=== PATIENT | female | born 1945 | race Caucasian/White ===

== ENCOUNTER 2024-09-26 08:49 | Day surgery (SDC) | payer MEDICARE ==
[2024-09-26] VITALS (19 sets, daily range): BP systolic 148–189; BP diastolic 55–102
[~2024-09-26] VITALS: Ht 154.9 cm; Wt 84.5 kg
[~2024-09-26 08:49] MED LIST: AMLO5 PO; ATORVASTATIN CA80 M1 PO; DULO30 PO; GABA300 PO; LEVSOD75 PO; LISI20 PO; OMEP20ER PO
[2024-09-26] MEDS ORDERED: CeFAZolin Sodium 2,000 MG in NS 100 ML IV SCH (11:05)
[2024-09-26] MEDS ORDERED: Lactated Ringer's 1,000 ML IV SCH ×2 (11:05→17:30)
--- NOTE | 2024-09-26 11:15 | NUR ---
Ambulatory in Day Surgery W/CANE ASSIST. Pre-Op teaching done. Pt verbalizes understanding. History, Chart, Medications and Allergies reviewed before start of procedure.Patient confirms NPO status and agrees with scheduled surgery. Patient States Post-Procedure ride home has been arranged. Patient reports completing Chlorhexadine shower X2 prior to admission to hospital.
[2024-09-26] MEDS ORDERED: propofoL 20 ML IV ONE (12:39)
[2024-09-26] MEDS ORDERED: Dexamethasone Sod Phos 10 MG/ML 1ML VIAL ONE (12:39)
[2024-09-26] MEDS ORDERED: Ondansetron HCl 2 MG / ML 2ML Vial ONE (12:39)
[2024-09-26] MEDS ORDERED: Rocuronium Bromide 10 MG/ML 5ML Injection IV ONE (12:39)
[2024-09-26] MEDS ORDERED: FentaNYL Citrate 50 MCG/ML 2 ML Injection ONE ×2 (12:41→14:21)
[2024-09-26] MEDS ORDERED: Bupivacaine 0.5% HCl 5 MG/ML 30MLVIAL ONE (12:59)
[2024-09-26] MEDS ORDERED: Esmolol HCL 10 MG/ML 10ML VIAL ONE (13:46)
[2024-09-26] MEDS ORDERED: ePHEDrine Sulfate 50 MG/ML 1ML Injection ONE (14:12)
--- NOTE | 2024-09-26 15:07 | NUR ---
09/26/24 KARLIE RICHARDSON SMALL SKIN TEAR NOTED NEAR [facility] AC PERIPHERAL IV SITE SECONDARY TO TAPE AND POSITIONING. BANDAGE APPLIED, SURGEON AND ANESTHESIA NOTIFIED
[2024-09-26] MEDS ORDERED: Sugammadex Sodium 200 MG/2ML SDV (100 MG/ML) ONE (16:02)
[2024-09-26] MEDS ORDERED: Labetalol HCL 5 MG/ML 4ML Injection (Single Dose) ONE (16:12)
[2024-09-26] MEDS ORDERED: HYDROmorphone HCl/Pf 1MG SYR ONE ×2 (16:22→16:51)
[2024-09-26] MEDS ORDERED: LORazepam 2 MG/ML 1ML Injection ONE (16:41)
[2024-09-26] MEDS ORDERED: Ondansetron HCl 2 MG / ML 2ML Vial IV PRN (17:30)
[2024-09-26] MEDS ORDERED: Diazepam 5 MG / ML 2ML SYR IV PRN (17:35)
[2024-09-26] MEDS ORDERED: Ketorolac Tromethamine 15mg Vial IV PRN (17:35)
[2024-09-26] MEDS ORDERED: HYDROmorphone HCl/Pf 1MG SYR IV PRN (17:35)
[2024-09-26] MEDS ORDERED: FLU VACC TS2024-25(6MOS UP)/PF 45 MCG/0.5 ML SYRINGE IM SCH (17:35)
[2024-09-26] MEDS ORDERED: Acetaminophen 500 MG Tab PO SCH (18:00)
--- NOTE | 2024-09-26 19:39 | NUR ---
SHIFT SUMMARY PT ARRIVED TO UNIT FROM PACU AT APPROX 1805 TODAY. A/OX4- DROWSY. DENIES PAIN. ABD INCISION X 5 GLUED, OPEN TO AIR WITH NO DRAINAGED NOTED. IV TO RIGHT ACL PATENT. ABLE TO WIGGLE TOES. DENIES N/T, CHEST PAIN, OR N/V. TOLERATING CL. REPORT GIVEN TO ONCOMING RN.
[2024-09-26] MEDS ORDERED: Docusate Sodium 100 MG Cap PO SCH (21:00)
[2024-09-27] VITALS (13 sets, daily range): BP systolic 165–209; BP diastolic 68–101
--- NOTE | 2024-09-27 05:28 | NUR ---
SHIFT SUMMARY- IVETTE HAD A GOOD NIGHT. SHE DOES EXPERIENCE URINARY URGENCY AT BASELINE SO SHE DID HAVE A COUPLE INCONTINENT EPISODES, BUT WAS ABLE TO WALK ALL THE WAY INTO THE BATHROOM USING HER CANE. SHE COMPLAINED OF PAIN TWICE DURING THE NIGHT, TORADOL GIVEN- WHICH PROVIDED HER WITH RELIEF. SCHEDULED TYLENOL GIVEN ORDERED, NO OTHER NEEDS NOTED THROUGHOUT THE NIGHT. IVETTE DID REQUEST TO WEAR HER BIPAP AT NIGHT- RT SET THIS UP FOR HER AND THERE HAS BEEN NO ISSUES. AM VITAL SIGNS ELEVATED, 180/83- PATIENT STATES SHE TYPICALLY HAS HIGH BLOOD PRESSURE AND TAKES A BP MEDICATION DAILY. PT RECEIVING LR AT 50ML/HR. NO OTHER NEEDS. WILL CONTINUE TO MONITOR.
--- NOTE | 2024-09-27 08:09 | NUR ---
NURSING SURG DAYSHIFT: Assumed care of pt at approx 0700. A/O, very pleasant, coopertive with care. Denies any pain/discomfort at rest. Skin pale/fragile w/no breakdown noted, abd lap sites x3, small amt of bruising noted around L abd lap site, no redness/swelling noted. Ambulates w/one staff assist using cane. No tele in place, HRR w/HR 80-90's, no c/o CP/pressure, no noted edema. L/S cta t/o, denies dyspnea, O2 sat mid 90's, RA while awake w/home bipap while asleep, occ dry/INSULATION INSTALLER in a.m. Abd soft, tender w/palp, BT hypoactive, voids clear/yellow urine. PIV x1, LR infusing at 50. No s/s of acute distress this a.m. Ambulated to restroom w/o difficulty. Currently sitting up in bed having breakfast. Awaiting rounding from surgeon to discuss plan of care. Pt denies any current needs, cont to monitor for changes.
[2024-09-27] MEDS ORDERED: Lisinopril 20 MG Tab PO SCH (12:00)
[2024-09-27] MEDS ORDERED: AmLODIPine Besylate 5 MG Tab PO SCH ×2 (12:00→16:00)
[2024-09-27] MEDS ORDERED: HydrALAZINE HCl 20 MG / ML 1ML Vial IV PRN ×2 (15:25→18:41)
--- NOTE | 2024-09-27 18:43 | NUR ---
NURSING SURG DAYSHIFT SUMMARY: Pt did well t/o the a.m. Though home cardiac meds resumed and IV vasotec administered, pt remained hypertensive w/SBP >200. Surgeon notified, new d/o received, hospitalist consult completed. Pt seen by hospitalist and new meds ordered. IV hydralazine administered (10mg x2), pt remained >200. Pain medications given, OT dose lisinopril administered, hydralazine ordered dose increased, SBP remains >200. Pt has started passing gas this afternoon which has increased discomfort, pt encoured to get OOB to chair for supper. Walked approx 100 ft after supper w/SBA using cane, tolerated well. Currently resting in bed, bedside shift report completed. No s/s of acute distress, call light remains in reach.
[2024-09-27] MEDS ORDERED: Lisinopril 10 MG Tab PO ONE (20:00)
[2024-09-27] MEDS ORDERED: Gabapentin 300 MG Cap PO SCH (21:00)
[2024-09-28 04:01] VITALS: BP 144/73
--- NOTE | 2024-09-28 04:54 | NUR ---
SHIFT SUMMARY POD 2 LAP HERNIA REPAIR PT RESTED T/O SHIFT. PAIN MANAGED PER EMAR. TOLERATING PO INTAKE. PT IS SBA TO THE BATHROOM WITH A CANE. PT'S BP HAS IMPROVED THROUGH THE NIGHT. SBP DOWN INTO THE 140'S THIS AM. VSS. NO OTHER CONCERNS AT THIS TIME, CALL LIGHT WITHIN REACH
[2024-09-28] MEDS ORDERED: Omeprazole 20 MG CapCR PO SCH (06:00)
[2024-09-28] MEDS ORDERED: Levothyroxine Sodium 0.075 MG Tab PO SCH (06:00)
[2024-09-28 07:02] VITALS: BP 142/67
--- NOTE | 2024-09-28 07:25 | NUR ---
AM ASSESSMENT: Pt resting in bed. x5 Abd Lap incisions with glue that are clean, dry and intact. Abd binder in place. No redness or oozing noted. BT positive, pt states that she is passing flatus. LS clear. HR reg. Pulses palp. Pt states that her pain in ryan abd in 12/08. VSS, BP improved with systolic in the 140's. Pt denies needs, anxious for discharge. Call light in reach. Will monitor.
[2024-09-28] MEDS ORDERED: Lisinopril 20 MG Tab PO SCH (09:00)
[2024-09-28] MEDS ORDERED: DULoxetine HCL 30 MG Cap DR PO SCH (09:00)
[2024-09-28] MEDS ORDERED: Atorvastatin 40 MG Tab PO SCH (09:00)
[2024-09-28 10:47] VITALS: BP 159/72
[2024-09-28] MEDS ORDERED: OXYC5 PO (11:17)
--- NOTE | 2024-09-28 11:30 | NUR ---
discharge: Pt was given verbal and written discharge orders. Denies questions. IV was removed by [facility]. Left via w/c with [facility] and family. Stable at time of discharge.
== END 2024-09-28 11:29 | disposition home or self-care (01) ==
LOC: ORSCMMR 08:49 → ORD 10:30 → ORSCMMR 10:30 → SURS 18:02 → ORSCMMR 09-28 11:29
PROVIDERS: Surgery
PROC: 8E0W4CZ Robotic Assisted Procedure of Trunk Region, Percutaneous Endoscopic Approach (ICD-10-PCS; principal; 2024-09-26 12:00)
PROC: 0WUF4JZ Supplement Abdominal Wall with Synthetic Substitute, Percutaneous Endoscopic Approach (ICD-10-PCS; principal; 2024-09-26 12:00)
PROC: 3E0T3BZ Introduction of Anesthetic Agent into Peripheral Nerves and Plexi, Percutaneous Approach (ICD-10-PCS; principal; 2024-09-26 12:00)
DX: K43.0 Incisional hernia with obstruction, without gangrene (principal); M62.08 Separation of muscle (nontraumatic), other site; K66.0 Peritoneal adhesions (postprocedural) (postinfection); Z85.038 Personal history of other malignant neoplasm of large intestine; Z90.49 Acquired absence of other specified parts of digestive tract; I12.9 Hypertensive chronic kidney disease with stage 1 through stage 4 chronic kidney disease, or unspecified chronic kidney disease; N18.9 Chronic kidney disease, unspecified; G47.33 Obstructive sleep apnea (adult) (pediatric); E78.5 Hyperlipidemia, unspecified; E66.9 Obesity, unspecified; Z68.35 Body mass index [BMI] 35.0-35.9, adult; Z79.899 Other long term (current) drug therapy
CPT/HCPCS: 94762; A9270; C1781; J0360; J0690; J1100; J1171; J1885; J2060; J2405; J2704; J3010; J7120

== ENCOUNTER 2025-01-10 16:41 | Emergency (ER) | payer MEDICARE ==
[~2025-01-10] VITALS: Ht 160 cm; Wt 83.5 kg
[~2025-01-10 16:41] MED LIST changes: +OXYC5 PO
[2025-01-10 17:43] LABS: BASOPHILS ABSOLUTE AUTO 0.08 K/mm3 (0.00-0.23); BASOPHILS PERCENT AUTO 1 % (0-2); EOSINOPHILS ABSOLUTE AUTO 0.18 K/mm3 (0.00-0.68); EOSINOPHILS PERCENT AUTO 1 % (0-6); Hematocrit 35.1 % (33.0-51.0); Hemoglobin 11.3 g/dL (11.5-16.0); IMMATURE GRAN ABSOLUTE AUTO 0.05 K/mm3 (0.00-0.10); IMMATURE GRAN PERCENT AUTO 0 % (0-1); LYMPHOCYTES ABSOLUTE AUTO 2.51 K/mm3 (0.84-5.20); LYMPHOCYTES PERCENT AUTO 17 % (21-46); MONOCYTES ABSOLUTE AUTO 1.26 K/mm3 (0.16-1.47); MONOCYTES PERCENT AUTO 9 % (4-13); Mean Corpuscular HGB 27.6 pg (26.0-34.0); Mean Corpuscular HGB Conc 32.2 g/dL (31.5-36.5); Mean Corpuscular Volume 86 fL (80-100); NEUTROPHILS ABSOLUTE AUTO 10.49 K/mm3 (1.96-9.15); NEUTROPHILS PERCENT AUTO 72 % (41-73); Platelet Count 311 K/mm3 (150-400); RDW Coefficient Variation 15.9 % (11.7-14.2); RDW Standard Deviation 49.4 fL (35.1-46.3); Red Blood Cell Count 4.09 M/mm3 (3.80-5.20); White Blood Cell Count 14.57 K/mm3 (4.00-11.30)
[2025-01-10 18:08] LABS: Albumin, Blood 3.3 g/dL (3.4-5.0); Albumin/Globulin Ratio 0.8 (0.8-1.8); Bilirubin, Total 0.6 mg/dL (0.1-1.0); Bun/Creatinine Ratio 11.9 (12.0-20.0); Calcium, Blood 10.9 mg/dL (8.5-10.1); Creatinine, Blood 1.35 mg/dL (0.40-1.00); Globulin, Blood 4.3 g/dL (2.2-4.0); Potassium, Blood 3.7 mmol/L (3.5-5.5); Total Protein, Blood 7.6 g/dL (6.4-8.2)
[2025-01-10 20:33] LABS: Source, Urine Clean Catch
[2025-01-10 20:42] LABS: Bilirubin, Urine Neg (Neg); Blood, Urine Neg (Neg); Glucose Qualitative, Urine Neg (Neg); Ketones, Urine 1+ (Neg); Leukocyte Esterase, Urine Neg (Neg); Nitrite, Urine Neg (Neg); Protein, Urine 2+ (Neg); Urobilinogen, Urine NORM (Normal)
[2025-01-10 20:47] LABS: Appearance, Urine Clear (Clear); Color, Urine Yellow (P-Yellow)
[2025-01-10 20:49] LABS: Bacteria Few /hpf; Red Blood Cells, Urine 0-2 /hpf (0-2); Squamous Epithelial Cells Few /hpf (Few)
[2025-01-10 22:33] VITALS: BP 143/78
== END 2025-01-10 22:34 | disposition home or self-care (01) ==
LOC: ER 16:41
PROVIDERS: Student in an Organized Health Care Education/Training Program
DX: K57.33 Diverticulitis of large intestine without perforation or abscess with bleeding (principal); I10 Essential (primary) hypertension; E03.9 Hypothyroidism, unspecified; F32.A Depression, unspecified; Z79.890 Hormone replacement therapy; Z79.899 Other long term (current) drug therapy
CPT/HCPCS: 74177; 80053; 81001; 85025; 86850; 86900; 86901; 93005; 93010; 99285-25; Q9967